=== PATIENT | female | born 1980 | race Caucasian/White ===

== ENCOUNTER 2019-11-26 11:21 | Inpatient (IN) ==
[2019-11-26] MEDS: Ringers Solution, Lactated 1,000 ML IVC SCH ×3 (11:10→21:59)
[2019-11-26] MEDS ORDERED: Clindamycin 900 MG/50 ML 900 MG/50 ML IV.SOLN IVPB ONE (11:37)
[2019-11-26] MEDS ORDERED: Lidocaine -MPF 2% 2 ML VIAL ONE (11:51)
[2019-11-26] MEDS ORDERED: *HR* Midazolam HCl 2 MG/2 ML VIAL ONE (11:51)
[2019-11-26] MEDS ORDERED: *HR* Rocuronium Bromide 50 MG/5 ML VIAL ONE (11:51)
[2019-11-26] MEDS ORDERED: *HR* Propofol 200 MG/20 ML VIAL IVP ONE (11:51)
[2019-11-26] MEDS ORDERED: *HR* FentaNYL (PF) 100 MCG/2 ML VIAL ONE (11:51)
[2019-11-26] MEDS ORDERED: Lidocaine HCL 4 ML Topical Solution (Laryng-O-Jet Kit Sterile Pak) TP ONE (11:55)
[2019-11-26] MEDS ORDERED: *HR* Labetalol 20 MG/4 ML SYRINGE IVP PRN (12:39)
[2019-11-26] MEDS ORDERED: *HR* Promethazine 25 MG/ML VIAL IVP PRN (12:39)
[2019-11-26] MEDS ORDERED: Famotidine 20 MG/2 ML VIAL IVP ONE (12:39)
[2019-11-26] MEDS ORDERED: *HR* OxyCODONE Immed Rel 5 MG TABLET PO PRN (12:39)
[2019-11-26] MEDS ORDERED: Acetaminophen IV 1,000 MG/100 ML INFUS..BTL IVPB ONE (12:39)
[2019-11-26] MEDS ORDERED: Pregabalin 75 MG CAPSULE PO ONE (12:39)
[2019-11-26] MEDS ORDERED: *HR* HYDROmorphone 2 MG TABLET PO PRN (12:39)
[2019-11-26] MEDS ORDERED: Lidocaine/EPI 1:100k 1% 50 ML VIAL ONE (12:50)
[2019-11-26] MEDS ORDERED: Dexamethasone 4 MG/ML VIAL ONE (13:45)
[2019-11-26] MEDS ORDERED: Ketorolac 30 MG/ML VIAL ONE (13:45)
[2019-11-26] MEDS ORDERED: Ondansetron 4 MG/2 ML VIAL ONE (13:45)
[2019-11-26] MEDS ORDERED: *HR* PHENYLEPHRINE 1,000 MCG/10 ML SYRINGE IVP ONE (13:58)
[2019-11-26] MEDS ORDERED: *HR* HYDROMORPHONE 2 MG/ML VIAL ONE (14:12)
[2019-11-26] MEDS ORDERED: Ondansetron 4 MG/2 ML VIAL IVP PRN (14:55)
[2019-11-26] MEDS ORDERED: Naloxone 0.4 MG/ML INJ IVP PRN (14:55)
[2019-11-26] MEDS: *HR* HYDROmorphone PF 0.5 MG/0.5 ML SYRINGE IVP PRN ×2 (15:16→15:33)
[2019-11-26] MEDS: *HR* OxyCODONE/APAP 5/325 TABLET PO PRN ×2 (16:16→20:34)
[2019-11-26] MEDS: Clindamycin 900 MG/50 ML 900 MG/50 ML IV.SOLN IVPB SCH (16:52)
[2019-11-26] MEDS: Ketorolac 30 MG/ML VIAL IVP PRN (20:33)
[2019-11-27] MEDS: Clindamycin 900 MG/50 ML 900 MG/50 ML IV.SOLN IVPB SCH ×2 (00:15→08:41)
[2019-11-27] MEDS: Ringers Solution, Lactated 1,000 ML IVC SCH (00:16)
[2019-11-27] MEDS: *HR* OxyCODONE/APAP 5/325 TABLET PO PRN ×2 (02:22→08:41)
[2019-11-27] MEDS: Ketorolac 30 MG/ML VIAL IVP PRN ×2 (02:22→08:48)
[2019-11-27 05:27] LABS: Basophils % 0.1 %; Hematocrit 26.5 % (35.3-44.9); Hemoglobin 7.8 g/dL (11.5-15.4); Immature Granulocytes % 0.3 % (0-4); Lymphocytes # 0.9 K/mcL (0.6-4.6); Lymphocytes % 12.9 %; Mean Corpuscular HGB Conc 29.4 g/dL (31.6-35.5); Mean Corpuscular Hemoglobin 20.6 pg (28.0-33.3); Mean Corpuscular Volume 69.9 fL (83.0-100.0); Mean Platelet Volume 10.1 fL (9.4-12.4); Monocytes # 0.3 K/mcL (0.0-1.3); Monocytes % 4.4 %; Platelet Count 343 K/mcL (140-400); Red Blood Count 3.79 M/mcL (3.82-4.97); Red Cell Distribution Width 15.4 % (11.5-14.5); Segmented Neutrophils % 82.3 %
[2019-11-27 05:29] LABS: White Blood Count 7.3 K/mcL (4.3-11.1)
[2019-11-27 05:44] LABS: BUN/Creatinine Ratio 13 (6-26); Blood Urea Nitrogen 10 mg/dL (6-20); eGFR For African Americans > 60 (> 60); eGFR For Non-African Americans > 60 (> 60)
[2019-11-27 05:51] LABS: Anisocytosis 1+ (Not Present); Microcytosis Present (Not Present); Platelet Estimate Normal (Normal)
[2019-11-27 08:13] VITALS: BP 115/70
== END 2019-11-27 10:35 | disposition home or self-care (01) | DRG 743 ==
LOC: SAMDAY 11:21 → 1NENUOBS 17:15
PROVIDERS: ADMIT Obstetrics & Gynecology; ATTEND Obstetrics & Gynecology